=== PATIENT | female | born 1965 | race Native Hawaiian/Other Pacific Islander ===

== ENCOUNTER 2017-12-27 14:26 | Inpatient (IN) | payer OTHER ==
--- NOTE | 2017-12-27 16:00 | Cat Scan Report ---
FINAL REPORT EXAM: CT HEAD/BRAIN WO CON HISTORY: neuro deficits < 6hrs or sx present upon awakening TECHNIQUE: CT of the Head without IV contrast. PRIORS: None currently available. FINDINGS: There is no evidence for acute ischemia. There is no hemorrhage. There is no midline shift. There is no hydrocephalus. There is no mass. Age appropriate dominguez-white matter attenuation is noted. There is no calvarial fracture. The temporal bones demonstrate aerated mastoid air cells. The middle ears appear unremarkable. Paranasal sinuses are unremarkable. Globes are intact. IMPRESSION: No acute intracranial findings.
[2017-12-27 16:22] LABS: Basophils % (Auto) 0.6 % (0.0-1.8); Eosinophils # (Auto) 0.1 K/mm3 (0.0-0.4); Eosinophils % (Auto) 2.1 % (0.0-4.3); Hematocrit 38.9 % (30.3-42.9); Hemoglobin 12.8 gm/dl (10.1-14.3); Lymphocytes # (Auto) 2.8 K/mm3 (1.2-5.4); Lymphocytes % (Auto) 38.2 % (13.4-35.0); Mean Corpuscular HGB Conc 33 % (30-34); Mean Corpuscular Hemoglobin 29 pg (28-32); Mean Corpuscular Volume 88 fl (79-97); Monocytes # (Auto) 0.5 K/mm3 (0.0-0.8); Monocytes % (Auto) 6.7 % (0.0-7.3); Platelet Count 242 K/mm3 (140-440); Red Blood Count 4.41 M/mm3 (3.65-5.03); Red Cell Distribution Width 13.6 % (13.2-15.2)
[2017-12-27 16:32] LABS: INR 0.97 (0.87-1.13)
[2017-12-27 16:33] LABS: Partial Thromboplastin Time 30.8 Sec. (24.2-36.6)
[2017-12-27 16:45] LABS: BUN/Creatinine Ratio 11; Blood Urea Nitrogen 12 mg/dL (7-17); Calcium 9.1 mg/dL (8.4-10.2); Hemolysis Index 6
--- NOTE | 2017-12-27 17:20 | Emergency Department Report ---
Lori Doc - Documentation Documentation: 52 year old female presents to ED with complaints of dizziness. Patient states she was at work and began having symptoms at approximately 9:30 AM. States she became dizzy and lightheaded. Reports she also had slurred speech and difficulty speaking. Denies extremity numbness or weakness. She states symptoms lasted approximately one hour before improving. Patient currently at baseline. Vital signs normal. Neuro exam normal. CT head negative. Will likely require further workup for TIA including neuro consult.
[2017-12-27] MEDS ORDERED: REGLAN PO PRN (17:55)
[2017-12-27] MEDS ORDERED: PHENERGAN PR PRN (17:55)
[2017-12-27] MEDS ORDERED: SODIUM CHLORIDE FLUSH SYRINGE 10 ML IV PRN (17:55)
[2017-12-27] MEDS ORDERED: DULCOLAX PR PRN (17:55)
[2017-12-27] MEDS ORDERED: ZOFRAN IV PRN (17:55)
[2017-12-27] MEDS ORDERED: MILK OF MAGNESIA PO PRN (17:55)
[2017-12-27] MEDS ORDERED: TYLENOL PO PRN (17:55)
--- NOTE | 2017-12-27 17:55 | History and Physical Report ---
History of Present Illness Chief complaint: I felt weak History of present illness: 52 YO Female with Vertigo presents to ED for evaluation. Pt states that she experienced sudden onset of weakness, dizziness, lightheadedness, slurred speech that began around 0930 hrs while at work. Pt states that the symptoms lasted over almost two hours and slowly improved. Pt was subsequently transported to [facility] by family members for further care and evaluation. Pt seen and evaluated in ED upon arrival. Pt found to have symptoms consistent with CVA. Pt denies fever, chills, CP, Palpitations, NVD, Trauma, Syncope, headache , neck pain, neck stiffness, vision loss, hearing loss, loss of bowel/bladder continence. Pt admitted to telemetry, and initiated on CVA protocol. Pt outside therapeutic window for TPA at time of my consultation/evaluation. Past History Past Medical History: other (vertigo) Past Surgical History: No surgical history, Other (reviewed) Social history: single. denies: smoking, alcohol abuse, prescription drug abuse Family history: no significant family history (reviewed) Medications and Allergies Allergies Allergy/AdvReac Type Severity Reaction Status Date / Time celecoxib [From Celebrex] Allergy Anaphylaxis Verified 12/27/17 23:08 fexofenadine [From Jennifer] Allergy Anaphylaxis Verified 12/27/17 23:08 Home Medications Medication Instructions Recorded Confirmed Last Taken Type Fluticasone [Flonase] 1 spray INTRANASAL BID 12/28/17 12/28/17 Unknown History Review of Systems Constitutional: no weight loss, no weight gain, no fever, no chills Ears, nose, mouth and throat: no ear pain, no ear discharge, no tinnitis, no decreased hearing, no nose pain Breasts: no change in shape, no swelling, no mass Cardiovascular: no chest pain, no orthopnea, no palpitations, no rapid/ irregular heart beat, no edema, no syncope Respiratory: no cough, no cough with sputum, no excessive sputum, no hemoptysis , no shortness of breath Gastrointestinal: no nausea, no vomiting, no diarrhea, no constipation Genitourinary Female: no pelvic pain, no flank pain, no menorrhagia, no dysuria , no urinary frequency, no urgency Rectal: no pain, no incontinence, no bleeding Musculoskeletal: no neck stiffness, no neck pain, no shooting arm pain, no arm numbness/tingling, no low back pain Integumentary: no rash, no pruritis, no redness, no sores, no wounds Neurological: weakness, numbness, aphasia, change in speech, sensory deficit, no paralysis, no parathesias, no tingling, no seizures, no syncope Psychiatric: no anxiety, no memory loss, no change in sleep habits, no sleep disturbances, no insomnia, no hypersomnia Endocrine: no cold intolerance, no heat intolerance, no polyphagia, no excessive thirst, no polydipsia Hematologic/Lymphatic: no easy bruising, no easy bleeding, no lymphadenopathy, no lymphedema Allergic/Immunologic: no urticaria, no allergic rhinitis, no wheezing, no persistent infections, no anaphylaxis, no angioedema Exam - Constitutional Vitals: Temp Pulse Resp BP Pulse Ox 97.8 F 84 18 128/74 99 12/27/17 14:53 12/27/17 16:30 12/27/17 14:58 12/27/17 16:30 12/27/17 14:58 General appearance: Present: no acute distress, well-nourished - EENT Eyes: Present: PERRL ENT: hearing intact, clear oral mucosa - Neck Neck: Present: supple, normal ROM - Respiratory Respiratory effort: normal Respiratory: bilateral: CTA - Cardiovascular Heart Sounds: Present: S1 & S2. Absent: rub, click - Extremities Extremities: pulses symmetrical, No edema Peripheral Pulses: within normal limits - Abdominal General gastrointestinal: Present: soft, non-tender, non-distended, normal bowel sounds Female genitourinary: Present: normal - Integumentary Integumentary: Present: clear, warm, dry - Musculoskeletal Musculoskeletal: gait normal, strength equal bilaterally - Psychiatric Psychiatric: appropriate mood/affect, intact judgment & insight - Neurologic Neurologic: CNII-XII intact, moves all extremities Results - Labs CBC & Chem 7: 12/27/17 16:05 12/27/17 16:05 Labs: Abnormal lab results 12/27/17 Range/Units 16:05 Lymph % (Auto) 38.2 H (13.4-35.0) % Assessment and Plan - Patient Problems (1) CVA (cerebral vascular accident) Current Visit: Yes Status: Acute Qualifiers: Precerebral and cerebral artery: posterior cerebral artery Plan to address problem: Admit to telemetry: CT head, MRI Brain, MRA Brain, Echo, Carotid doppler, EEG, Neuro checks, antiplatelet therapy, PT/OT/ Speech therapy, lipid panel, statin therapy (2) Obesity (BMI 30.0-34.9) Current Visit: Yes Status: Acute Plan to address problem: Increased physical activity, balanced diet at discharge. (3) DVT prophylaxis Current Visit: Yes Status: Acute Plan to address problem: SCD to BLE while in bed.
[2017-12-27] MEDS ORDERED: BABY ASPIRIN PO ONE (18:00)
--- NOTE | 2017-12-27 18:16 | Emergency Department Report ---
HPI - General Chief Complaint: Neuro Symptoms/Deficit Time Seen by Provider: 12/27/17 16:55 - HPI HPI: The patient is a 52-year-old female presents for evaluation of neurologic deficits. The patient reports that 1-2 hours prior to arrival she experienced an insidious onset of slurred speech and difficulty finding words, mild to moderate in severity, constant for 1-2 hours, and self resolving shortly after arrival to the ED. She reports associated dizziness and nausea as well. The patient denies fever, head injury, headache, neck pain, neck stiffness, vision or hearing changes, smell or taste changes, paresthesias, facial drooping, seizure-like activity, urine or bowel incontinence or retention, or other focal neurological deficit. ED Past Medical Hx - Past Medical History Previous Medical History?: Yes Additional medical history: vertigo - Surgical History Past Surgical History?: No - Social History Smoking Status: Never Smoker Substance Use Type: None ED Review of Systems ROS: Stated complaint: N/V Other details as noted in HPI Constitutional: denies: fever ENT: denies: throat or neck pain Respiratory: denies: cough, shortness of breath Cardiovascular: denies: chest pain Endocrine: denies unexplained weight loss or gain Gastrointestinal: denies: abdominal pain, nausea Genitourinary: denies: dysuria Musculoskeletal: denies: leg swelling Skin: denies: rash Neurological: Reports slurred speech and dizziness denies: headache Hematological/Lymphatic: denies: easy bleeding or easy bruising Psych: denies sadness or hopelessness Physical Exam - Physical Exam Vital Signs: Vital Signs 12/27/17 12/27/17 12/27/17 14:53 14:58 16:30 Temperature 97.8 F Pulse Rate 84 84 Respiratory 16 18 Rate Blood Pressure 134/80 Blood Pressure 128/74 [Right] O2 Sat by Pulse 97 99 Oximetry Physical Exam: General: well-nourished, well-developed, no acute distress Head: Normocephalic, atraumatic Eyes: normal sclera ENT: Mucous membranes are pale and dry Neck: No neck stiffness, no cervical adenopathy Respiratory: Breath sounds equal bilaterally, no wheezing, rales, or rhonchi Cardio: S1 and S2 present, no murmurs, rubs, gallops, capillary refill is delayed Abdomen: Normoactive bowel sounds, soft abdomen, no rigidity, no guarding or rebound tenderness Chest WALL/Back: No tenderness to palpation of the chest wall, no CVA tenderness with percussion Musc: No pitting edema Skin: No rash Neuro: alert oriented x4, normal cognition, speech normal, PERRL, EOM intact, no facial drooping, no uvula or tongue deviation on protrusion, no deficit with rotation of neck or shoulder shrug, no obvious gross motor deficit in the upper or lower extremities with flexion or extension at the shoulder, elbow, wrist, hip, knee, or ankle bilaterally, no obvious gross sensation deficit to crude touch or 2 pt discrimination, 2+ symmetric reflexes on DTR testing, no coordination deficit with hjkrav-[id number] or uefq-zp-wbal testing, Babinski downgoing, romberg negative, patient able to to ambulate without abnormal gait Psych: Normal affect ED Course Vital Signs 12/27/17 12/27/17 12/27/17 14:53 14:58 16:30 Temperature 97.8 F Pulse Rate 84 84 Respiratory 16 18 Rate Blood Pressure 134/80 Blood Pressure 128/74 [Right] O2 Sat by Pulse 97 99 Oximetry ED Medical Decision Making - Lab Data Result diagrams: 12/27/17 16:05 12/27/17 16:05 - Medical Decision Making The patient was seen and examined by myself. The patient is placed on a vehicle monitor technician and continuous pulse ox. On initial evaluation, the patient was found to be in no distress. Evaluation orders were placed. CT scan of head is negative for acute ischemic stroke or hemorrhage. Lab results are unrevealing. The patient's evaluation findings are consistent with transient ischemic attack as her symptoms are now resolved. The patient is given a tablet of aspirin for treatment of her TIA. The on-call hospitalist service was contacted. They agreed to admit the patient for further treatment and close monitoring. The ED admit order was placed. The patient was admitted in guarded condition. Critical care attestation.: If time is entered above; I have spent that time in minutes in the direct care of this critically ill patient, excluding procedure time. ED Disposition Clinical Impression: TIA (transient ischemic attack), Dizziness, nonspecific Disposition: OP ADMIT IP TO THIS HOSP Is pt being admited?: Yes Does the pt Need Aspirin: Yes Condition: Fair Referrals: PRIMARY CARE, [Primary Care Provider] - 3-5 Days Time of Disposition: 19:20 - Assessment Assessment Interval: Baseline - Level of Consciousness 1a. Level of Consciousness: alert/keenly responsive - LOC Questions 1b. LOC Questions: answers both correctly - LOC Command 1c. LOC Commands: performs tasks correctly - Best Gaze 2. Best Gaze: normal - Visual 3. Visual: no visual loss - Facial Palsy 4. Facial Palsy: normal symmetrical movement - Motor Arm 5b. Motor Arm Right: no drift 5a. Motor Arm Left: no drift - Motor Leg 6a. Motor Leg Left: no drift 6b. Motor Leg Right: no drift - Limb Ataxia 7. Limb Ataxia: absent - Sensory 8. Sensory: normal - Best Language 9. Best Language: no aphasia - Dysarthria 10. Dysarthria: normal - Extinction and Inattention 11. Extinction/Inattention: no abnormality - Scoring Total Score: 0 Stroke Severity: No Stroke Symptoms
[2017-12-28] MEDS: ASPIRIN PO SCH (12:33)
--- NOTE | 2017-12-28 17:59 | Progress Note ---
Assessment and Plan Assessment and plan: I felt weak History of present illness: 52 YO Female with Vertigo presents to ED for evaluation. Pt states that she experienced sudden onset of weakness, dizziness, lightheadedness, slurred speech that began around 0930 hrs while at work. Pt states that the symptoms lasted over almost two hours and slowly improved. Pt was subsequently transported to [facility] by family members for further care and evaluation. Pt seen and evaluated in ED upon arrival. Pt found to have symptoms consistent with CVA. Pt denies fever, chills, CP, Palpitations, NVD, Trauma, Syncope, headache , neck pain, neck stiffness, vision loss, hearing loss, loss of bowel/bladder continence. Pt admitted to telemetry, and initiated on CVA protocol. Pt outside therapeutic window for TPA at time of my consultation/evaluation. Past History Past Medical History: other (vertigo) (1) CVA (cerebral vascular accident) Current Visit: Yes Status: Acute Qualifiers: Precerebral and cerebral artery: posterior cerebral artery Plan to address problem: Admit to telemetry: CT head, MRI Brain, MRA Brain, Echo, Carotid doppler, EEG, Neuro checks, antiplatelet therapy, PT/OT/ Speech therapy, lipid panel, statin therapy (2) Obesity (BMI 30.0-34.9) Current Visit: Yes Status: Acute Plan to address problem: Increased physical activity, balanced diet at discharge. (3) DVT prophylaxis Current Visit: Yes Status: Acute Plan to address problem: SCD to BLE while in bed. History Interval history: Review of systems Constitutional: No fevers, no malaise, no joint pains CVS: No chest pain, no orthopnea, no dyspnea on exertion, no pedal edema GI: No abdominal pain, no diarrhea, no vomiting, no constipation Respiratory: No shortness of breath, no wheezing, no coughing Hospitalist Physical - Physical exam Narrative exam: General.: Appears well, no distress, nontoxic HEENT: Moist mucous membranes, extraocular muscles intact, no lymphadenopathy Neck: supple Cardiac: S1-S2 heard Lungs: clear to auscultation bilaterally Abdomen: soft , nontender, nondistended, bowel sounds positive Extremities: no edema clubbing or cyanosis Skin: no rash or lesions Neurologic: no gross focal deficits Psych: appropriate behavior, appropriate mood, corporative, judgment intact - Constitutional Vitals: Temp Pulse Resp BP Pulse Ox 98.2 F 81 18 132/81 99 12/28/17 15:38 12/28/17 15:38 12/28/17 15:38 12/28/17 15:38 12/28/17 15:38 General appearance: Present: no acute distress, well-nourished Results - Labs CBC & Chem 7: 12/27/17 16:05 12/27/17 16:05 Labs: Laboratory Last Values WBC 7.2 K/mm3 (4.5-11.0) 12/27/17 16:05 RBC 4.41 M/mm3 (3.65-5.03) 12/27/17 16:05 Hgb 12.8 gm/dl (10.1-14.3) 12/27/17 16:05 Hct 38.9 % (30.3-42.9) 12/27/17 16:05 MCV 88 fl (79-97) 12/27/17 16:05 MCH 29 pg (28-32) 12/27/17 16:05 MCHC 33 % (30-34) 12/27/17 16:05 RDW 13.6 % (13.2-15.2) 12/27/17 16:05 Plt Count 242 K/mm3 (140-440) 12/27/17 16:05 Lymph % (Auto) 38.2 % (13.4-35.0) H 12/27/17 16:05 [place] % (Auto) 6.7 % (0.0-7.3) 12/27/17 16:05 Eos % (Auto) 2.1 % (0.0-4.3) 12/27/17 16:05 Baso % (Auto) 0.6 % (0.0-1.8) 12/27/17 16:05 Lymph # 2.8 K/mm3 (1.2-5.4) 12/27/17 16:05 [place] # 0.5 K/mm3 (0.0-0.8) 12/27/17 16:05 Eos # 0.1 K/mm3 (0.0-0.4) 12/27/17 16:05 Baso # 0.0 K/mm3 (0.0-0.1) 12/27/17 16:05 Seg Neutrophils % 52.4 % (40.0-70.0) 12/27/17 16:05 Seg Neutrophils # 3.8 K/mm3 (1.8-7.7) 12/27/17 16:05 PT 13.4 Sec. (12.2-14.9) 12/27/17 16:05 INR 0.97 (0.87-1.13) 12/27/17 16:05 APTT 30.8 Sec. (24.2-36.6) 12/27/17 16:05 Thrombin Time 16.6 Sec. (15.1-19.6) 12/27/17 16:05 Sodium 142 mmol/L (137-145) 12/27/17 16:05 Potassium 4.0 mmol/L (3.6-5.0) 12/27/17 16:05 Chloride 105.0 mmol/L (98-107) 12/27/17 16:05 Carbon Dioxide 27 mmol/L (22-30) 12/27/17 16:05 Anion Gap 14 mmol/L 12/27/17 16:05 BUN 12 mg/dL (7-17) 12/27/17 16:05 Creatinine 1.1 mg/dL (0.7-1.2) 12/27/17 16:05 Estimated GFR 52 ml/min 12/27/17 16:05 BUN/Creatinine Ratio 11 % 12/27/17 16:05 Glucose 94 mg/dL (65-100) 12/27/17 16:05 Calcium 9.1 mg/dL (8.4-10.2) 12/27/17 16:05 Troponin T < 0.010 ng/mL (0.00-0.029) 12/27/17 16:05
[2017-12-28] MEDS ORDERED: ATIVAN IV NR (18:00)
--- NOTE | 2017-12-29 10:24 | Progress Note ---
Subjective Date of service: 12/29/17 Interval history: reviewed all notes and went over the prior labs /CT of head which are not at all remarkable suspect TIA echo and MRI ARE TO BE REVIEWED WILL REVIEW TESTING ORDERED Objective - Vital Sign Vital Signs - 12hr 12/28/17 12/29/17 12/29/17 22:44 00:09 04:00 Temperature 97.7 F Pulse Rate 76 64 Respiratory 18 Rate Blood Pressure 99/59 [Right] O2 Sat by Pulse 97 95 Oximetry 12/29/17 12/29/17 12/29/17 04:57 07:50 10:04 Temperature 98.3 F 98.3 F Pulse Rate 67 67 70 Respiratory 18 18 Rate Blood Pressure 118/53 109/52 [Right] O2 Sat by Pulse 97 98 Oximetry - Laboratory Findings CBC and BMP: 12/27/17 16:05 12/27/17 16:05 Abnormal Lab Findings: Abnormal Labs 12/27/17 16:05 Lymph % (Auto) 38.2 H
[2017-12-29] MEDS: ASPIRIN PO SCH (10:28)
[2017-12-30 06:25] VITALS: BP 96/51
--- NOTE | 2017-12-30 08:20 | Progress Note ---
Subjective Date of service: 12/30/17 Interval history: vertigo and headaaches are better the MRI / EEG are pending neuro exam is normal at this point c/o pain inright forearm this was assessed and appears to be benign good radial pulse explained w/u to patient strong family hx of stroke in father Objective - Vital Sign Vital Signs - 12hr 12/29/17 12/30/17 12/30/17 22:00 01:45 01:51 Temperature 98.6 F Pulse Rate 91 H 71 Respiratory 17 Rate Blood Pressure 111/65 [Right] O2 Sat by Pulse 98 99 Oximetry 12/30/17 12/30/17 06:23 08:03 Temperature 98.6 F Pulse Rate 75 78 Respiratory 17 Rate Blood Pressure 96/51 [Right] O2 Sat by Pulse 96 Oximetry - Laboratory Findings CBC and BMP: 12/27/17 16:05 12/27/17 16:05 Abnormal Lab Findings: Abnormal Labs 12/27/17 16:05 Lymph % (Auto) 38.2 H
[2017-12-30] MEDS: ASPIRIN PO SCH (11:06)
--- NOTE | 2017-12-30 12:53 | Magnetic Resonance Report ---
MRI OF THE BRAIN WITHOUT CONTRAST: HISTORY: Stroke PROCEDURE: Multiplanar, multisequence MR imaging of the brain without IV contrast was performed. FINDINGS: The brain parenchyma signal intensity and its newell white interface are within normal limits on all sequences. Minimal nonspecific chronic white matter changes are noted in the frontal regions. No evidence for acute ischemia, hemorrhage or mass. No chronic infarct or extra-axial fluid collection. The midline structures are central. The basal cisterns are patent. Normal ventricular size. The orbital cavities and sella turcica demonstrate no abnormality. The visualized paranasal sinuses and mastoid air cells are well aerated. IMPRESSION: Unremarkable non-enhanced MRI of the brain.
--- NOTE | 2017-12-30 12:54 | Magnetic Resonance Report ---
MRA HEAD WITHOUT CONTRAST HISTORY: Stroke. [id number] imaging with MIP reformations of the [place] of [place] is submitted. The arteries appear widely patent and free of hemodynamically significant stenosis, aneurysm or dissection. IMPRESSION: Unremarkable MRA head.
--- NOTE | 2017-12-30 16:11 | Discharge Summary ---
Providers - Providers Date of Admission: 12/27/17 17:55 Attending physician: SHONA DELEON MD 12/27/17 17:56 Occupational Therapy Evaluate and Treat [CONS] Routine Comment: Reason For Exam: Neuro deficits Physical Therapy Evaluation and Treat [CONS] Routine Comment: Reason For Exam: Neuro deficits Speech Therapy Evaluation and Treat [CONS] Routine Reason For Exam: swallow eval 12/28/17 17:59 Consult to Physician [CONS] Routine Comment: Consulting Provider: LEDY IRIZARRY Physician Instructions: Reason For Exam: cva Primary care physician: SYSTEMS DESIGN ENGINEER Hospitalization Condition: Fair Hospital course: I felt weak History of present illness: 52 YO Female with Vertigo presents to ED for evaluation. Pt states that she experienced sudden onset of weakness, dizziness, lightheadedness, slurred speech that began around 0930 hrs while at work. Pt states that the symptoms lasted over almost two hours and slowly improved. Pt was subsequently transported to [facility] by family members for further care and evaluation. Pt seen and evaluated in ED upon arrival. Pt found to have symptoms consistent with CVA. Pt denies fever, chills, CP, Palpitations, NVD, Trauma, Syncope, headache , neck pain, neck stiffness, vision loss, hearing loss, loss of bowel/bladder continence. Pt admitted to telemetry, and initiated on CVA protocol. Pt outside therapeutic window for TPA at time of my consultation/evaluation. Past History Past Medical History: other (vertigo) (1) CVA (cerebral vascular accident) Current Visit: Yes Status: Acute Qualifiers: Precerebral and cerebral artery: posterior cerebral artery Plan to address problem: Admit to telemetry: CT head, MRI Brain, MRA Brain, Echo, Carotid doppler, EEG, Neuro checks, antiplatelet therapy, PT/OT/ Speech therapy, lipid panel, statin therapy (2) Obesity (BMI 30.0-34.9) Current Visit: Yes Status: Acute Plan to address problem: Increased physical activity, balanced diet at discharge. (3) DVT prophylaxis Current Visit: Yes Status: Acute Plan to address problem: SCD to BLE while in bed. History Disposition: -01 TO HOME OR SELFCARE Time spent for discharge: 33 minutes Core Measure Documentation - Palliative Care Palliative Care/ Comfort Measures: Not Applicable - Core Measures Any of the following diagnoses?: stroke - Stroke Discharge Requirements Statin for LDL = or >70 mg/dl on DC: Yes Anticoag for atrial fib/atrial flutter: Not Applicable Antithrombotic for ischemic stroke: Yes Exam - Constitutional Vitals: Temp Pulse Resp BP Pulse Ox 98.6 F 78 17 96/51 96 12/30/17 06:23 12/30/17 08:03 12/30/17 06:23 12/30/17 06:23 12/30/17 06:23 General appearance: Present: no acute distress, well-nourished - EENT Eyes: Present: PERRL ENT: hearing intact, clear oral mucosa - Neck Neck: Present: supple, normal ROM - Respiratory Respiratory effort: normal Respiratory: bilateral: CTA - Cardiovascular Heart Sounds: Present: S1 & S2. Absent: rub, click - Extremities Extremities: pulses symmetrical, No edema Peripheral Pulses: within normal limits - Abdominal General gastrointestinal: Present: soft, non-tender, non-distended, normal bowel sounds Female genitourinary: Present: normal - Integumentary Integumentary: Present: clear, warm, dry - Musculoskeletal Musculoskeletal: gait normal, strength equal bilaterally - Psychiatric Psychiatric: appropriate mood/affect, intact judgment & insight - Neurologic Neurologic: CNII-XII intact, moves all extremities Plan Follow up with: PRIMARY CARE, [Primary Care Provider] - 3-5 Days Prescriptions: Pravastatin Sodium [Pravastatin] 10 mg PO QHS #30 tablet Aspirin [Aspirin EC] 81 mg PO DAILY #30 tablet.
--- NOTE | 2018-01-01 14:48 | Vascular Lab Report ---
CAROTID DUPLEX STUDY: RIGHT PSVEDV CCA PROX:[id number] CCA DIST:8728 ICA PROX:8222 ICA MID:8333 ICA DIST:9640 ECA: 8014 VERT: 55 21 LEFT PSVEDV CCA PROX:9027 CCA DIST:8030 ICA PROX:8832 ICA MID:8934 ICA DIST:8331 ECA: 6513 VERT: 50 19 REASON FOR EXAM: Stroke. COMMENTS ON THE RIGHT: Doppler frequency analysis is consistent with 16 to 49 percent diameter reduction of the internal carotid artery. Minimal amount of plaque is seen. The common carotid artery is patent. The external carotid artery is patent. The vertebral artery has antegrade flow. COMMENTS ON THE LEFT: Doppler frequency analysis is consistent with 16 to 49 percent diameter reduction of the internal carotid artery. Minimal amount of plaque is seen. The common carotid artery is patent. The external carotid artery is patent. The vertebral artery has antegrade flow. IMPRESSION: Less than 50% diameter reduction in the internal carotid arteries bilaterally.
== END 2017-12-30 17:55 | disposition home or self-care (01) | DRG 66 ==
LOC: ED 14:26 → 4A 17:55
PROVIDERS: ADMIT Internal Medicine; ATTEND Internal Medicine
DX: I63.9 Cerebral infarction, unspecified (principal); E66.9 Obesity, unspecified; Z68.30 Body mass index [BMI] 30.0-30.9, adult; Z79.899 Other long term (current) drug therapy; Z82.3 Family history of stroke
CPT/HCPCS: 36415; 70450; 70544; 70551; 80048; 84484; 85025; 85610; 85670; 85730; 93005; 93010; 93306; 93880; A9270-GY; J2405